=== PATIENT | female | born 2000 | race Caucasian/White ===

== ENCOUNTER 2023-10-08 13:39 | Outpatient (CLI) | payer OTHER | END 2023-10-08 15:54 | disposition home or self-care (01) | LOC: NST 13:39 | PROVIDERS: ATTEND Obstetrics & Gynecology Gynecology | DX: Z34.83 Encounter for supervision of other normal pregnancy, third trimester (principal) ==

== ENCOUNTER 2023-10-28 07:36 | Outpatient (CLI) | payer OTHER | END 2023-10-28 08:20 | disposition home or self-care (01) | LOC: NST 07:36 | PROVIDERS: ATTEND Obstetrics & Gynecology Gynecology | DX: Z34.83 Encounter for supervision of other normal pregnancy, third trimester (principal) ==

== ENCOUNTER 2023-11-25 16:12 | Outpatient (CLI) | payer OTHER | END 2023-11-25 16:35 | disposition home or self-care (01) | LOC: NST 16:12 | PROVIDERS: ATTEND Obstetrics & Gynecology Gynecology | DX: Z34.83 Encounter for supervision of other normal pregnancy, third trimester (principal) ==

== ENCOUNTER 2023-11-29 12:35 | Inpatient (IN) | payer OTHER ==
[~2023-11-29] VITALS: Ht 167.6 cm; Wt 98.9 kg
[2023-11-29] MEDS ORDERED: BETAMETHASONE ACETATE,SOD PHOS 30 MG/5 ML ML ONE (12:56)
[2023-11-29] MEDS ORDERED: RINGERS SOLUTION,LACTATED 1,000 ML IV SCH (13:30)
[2023-11-29] MEDS ORDERED: BETAMETHASONE ACETATE,SOD PHOS 30 MG/5 ML ML IM ONE (13:30)
[2023-11-29] MEDS ORDERED: METHIMAZOLE 5 MG TABLET PO SCH (13:30)
[2023-11-29] MEDS ORDERED: LABETALOL HCL 300 MG TABLET PO SCH (13:30)
[2023-11-29 13:35] LABS: HEMATOCRIT 36.2 % (36.0-45.00); MEAN CELL VOLUME 88.6 fL (80.00-100.00); MEAN CORPUSCULAR HEMOGLOBIN 29.4 pg (27.00-32.0); MEAN CORPUSCULAR HGB CONC 33.2 g/dl (32.0-36.0); RED BLOOD COUNT 4.08 M/uL (4.00-6.00); RED CELL DISTRIBUTION WIDTH 13.1 % (11.5-14.5)
[2023-11-29 13:40] LABS: PLATELET COUNT 68 K/uL (150-450)
[2023-11-29 13:44] LABS: PH,URINE 6.5 (5.0-8.0); URINE APPEARANCE Clear; URINE BILIRRUBIN Negative (NEGATIVE); URINE BLOOD Negative; URINE COLOR Yellow; URINE LEUKOCYTE Negative; URINE NITRATE Negative; URINE PROTEIN Negative (NEGATIVE); URINE UROBILINOGEN 0.2 E.U./dl
[2023-11-29] MEDS ORDERED: PRENATAL TABLE1 EAC1 PO (13:44)
[2023-11-29] MEDS ORDERED: TRANDATE300 MG PO (13:44)
[2023-11-29] MEDS ORDERED: TAPAZOLE5 MG PO (13:44)
[2023-11-29 13:45] LABS: URINE BACTERIA 1902.4 uL (0.0-1933); URINE EPITHELIAL CELLS 11.2 uL (0.0-38.8); URINE RBC 12.2 uL (0.0-20.8); URINE WBC 13.1 uL (0.0-23.2)
[2023-11-29 14:10] LABS: URINE GLUCOSE 100 MG/DL (NEGATIVE)
[2023-11-29 14:17] LABS: ALBUMIN 2.9 gm/dL (3.4-5.0); BILIRUBIN TOTAL 0.27 mg/dL (0.3-1.2); CALCIUM 9.1 mg/dL (8.5-10.1); CREATININE SERUM 0.68 mg/dL (0.55-1.02); GFR 105.42; POTASSIUM 4.26 mEq/L (3.5-5.1); TOTAL PROTEIN 6.9 gm/dL (6.4-8.2)
[2023-11-29 14:24] LABS: INR 0.95; PARTIAL THROMBOPLASTIN TIME 27.3 SECONDS (22.0-34.0)
[2023-11-29 18:34] LABS: T4 FREE 0.97 NG/ML (0.76-1.46); TSH 0.866 uIU/mL (0.358-3.74)
[2023-11-30 06:22] LABS: PLT IN CITRATE 62 K/uL (150-450)
[2023-11-30 06:59] LABS: HEMATOCRIT 35.6 % (36.0-45.00); HEMOGLOBIN 11.8 g/dL (12.0-15.00); MEAN CELL VOLUME 89.2 fL (80.00-100.00); MEAN CORPUSCULAR HEMOGLOBIN 29.6 pg (27.00-32.0); MEAN CORPUSCULAR HGB CONC 33.2 g/dl (32.0-36.0); RED BLOOD COUNT 3.99 M/uL (4.00-6.00); RED CELL DISTRIBUTION WIDTH 13.4 % (11.5-14.5)
[2023-11-30] MEDS ORDERED: BETAMETHASONE ACETATE,SOD PHOS 30 MG/5 ML ML IM ONE (13:00)
[2023-11-30] MEDS ORDERED: MISOPROSTOL 25 MCG TABLET ONE (17:24)
[2023-11-30] MEDS ORDERED: MISOPROSTOL 25 MCG TABLET VAG SCH (17:45)
[2023-11-30] MEDS ORDERED: AMPICILLIN SODIUM 2,000 MG VIAL IV ONE (17:45)
[2023-11-30] MEDS ORDERED: MORPHINE SULFATE 4 MG/ML CARTRIDGE IV SCH (21:00)
[2023-11-30] MEDS ORDERED: AMPICILLIN SODIUM 1,000 MG VIAL IV SCH (21:00)
[2023-12-01] MEDS ORDERED: OXYTOCIN 20 UNITS/500ML RL PIGGYBAG IV ONE (08:25)
[2023-12-01] MEDS ORDERED: OXYTOCIN 500 ML IV ONE (08:30)
[2023-12-01] MEDS ORDERED: OXYTOCIN 10 UNITS/ML VIAL ONE (20:08)
[2023-12-01] MEDS ORDERED: ERYTHROMYCIN BASE 3.5 GM OINT...G. OP ONE (20:09)
[2023-12-01] MEDS ORDERED: KETOROLAC TROMETHAMINE 30 MG VIAL IV SCH (20:10)
[2023-12-01] MEDS ORDERED: OXYTOCIN 1,000 ML IV ONE (20:15)
[2023-12-01] MEDS ORDERED: CITRIC ACID/SODIUM CITRATE 30 ML BLIST.PACK PO SCH (20:15)
[2023-12-01] MEDS ORDERED: MORPHINE SULFATE 4 MG/ML CARTRIDGE IV PRN (20:15)
[2023-12-01] MEDS ORDERED: CEFAZOLIN SODIUM 1,000 MG VIAL IV SCH (20:15)
[2023-12-01] MEDS ORDERED: RINGERS SOLUTION,LACTATED 1,000 ML IV SCH (20:15)
[2023-12-01] MEDS ORDERED: OXYTOCIN 10 UNITS/ML VIAL IV ONE (22:45)
[2023-12-01] MEDS ORDERED: ERYTHROMYCIN BASE 1 GM TUBE OP ONE (22:45)
[2023-12-02] MEDS ORDERED: AMPICILLIN SODIUM 1,000 MG VIAL ONE (00:22)
[2023-12-02] MEDS ORDERED: GABAPENTIN 300 MG CAPSULE PO SCH (01:00)
[2023-12-02] MEDS ORDERED: SIMETHICONE 125 MG CAPSULE PO SCH (01:00)
[2023-12-02] MEDS ORDERED: ACETAMINOPHEN 500 MG GEL..CAP PO SCH (06:00)
[2023-12-02 06:58] LABS: HEMATOCRIT 33.7 % (36.0-45.00); HEMOGLOBIN 11.3 g/dL (12.0-15.00); MEAN CELL VOLUME 87.4 fL (80.00-100.00); MEAN CORPUSCULAR HEMOGLOBIN 29.4 pg (27.00-32.0); MEAN CORPUSCULAR HGB CONC 33.6 g/dl (32.0-36.0); RED BLOOD COUNT 3.86 M/uL (4.00-6.00); RED CELL DISTRIBUTION WIDTH 13.2 % (11.5-14.5)
[2023-12-02 07:06] LABS: PLATELET COUNT 82 K/uL (150-450)
[2023-12-02] MEDS ORDERED: OxyCODONE HCL 5 MG TABLET (ROXICODONE) PO PRN (08:00)
[2023-12-02] MEDS ORDERED: KETOROLAC TROMETHAMINE 10 MG TABLET PO SCH (08:00)
[2023-12-02] MEDS ORDERED: SENNOSIDES 1 TAB TABLET PO SCH (09:00)
[2023-12-02] MEDS ORDERED: OxyCODONE HCL/APAP UD (PERCOCET) PO SCH (09:00)
[2023-12-03] MEDS ORDERED: TAPAZOLE5 MG PO (07:30)
[2023-12-03] MEDS ORDERED: OXYC1TAB9 PO (07:30)
[2023-12-03] MEDS ORDERED: KETO10TA2 PO (07:30)
[2023-12-03] MEDS ORDERED: TRANDATE300 MG PO (07:30)
[2023-12-03 16:56] LABS: PLATELET COUNT 65 K/uL (150-450)
[2023-12-03 16:57] LABS: PLATELET ESTIMATE NORMAL (NORMAL)
== END 2023-12-04 12:00 | disposition home or self-care (01) | DRG 787 ==
LOC: LDR 12:35 → OB/GYN 12:35 → LDR 11-30 19:17 → O/R 12-01 11:03 → LDR 12-01 11:04 → O/R 12-01 21:11 → OB/GYN 12-01 21:56
PROVIDERS: Internal Medicine Hematology & Oncology; Obstetrics & Gynecology; Obstetrics & Gynecology Maternal & Fetal Medicine; ADMIT Obstetrics & Gynecology Gynecology; ATTEND Obstetrics & Gynecology Gynecology
PROC: 4A1HXCZ Monitoring of Products of Conception, Cardiac Rate, External Approach (ICD-10-PCS; 2023-11-29)
PROC: 3E0P7VZ Introduction of Hormone into Female Reproductive, Via Natural or Artificial Opening (ICD-10-PCS; 2023-11-30)
PROC: 3E033VJ Introduction of Other Hormone into Peripheral Vein, Percutaneous Approach (ICD-10-PCS; 2023-12-01)
PROC: 10D00Z1 Extraction of Products of Conception, Low, Open Approach (ICD-10-PCS; principal; 2023-12-01 20:10)
DX: O61.0 Failed medical induction of labor (principal); O10.02 Pre-existing essential hypertension complicating childbirth; O99.284 Endocrine, nutritional and metabolic diseases complicating childbirth; R89.8 Other abnormal findings in specimens from other organs, systems and tissues; E05.90 Thyrotoxicosis, unspecified without thyrotoxic crisis or storm; Z3A.37 37 weeks gestation of pregnancy; Z37.0 Single live birth; Z20.822 Contact with and (suspected) exposure to COVID-19

== ENCOUNTER 2024-07-24 22:38 | Emergency (ER) | payer OTHER ==
[~2024-07-24] VITALS: Ht 172.7 cm; Wt 93.4 kg
[~2024-07-24 22:38] MED LIST: KETO10TA2 PO; OXYC1TAB9 PO; PRENATAL TABLE1 EAC1 PO; TAPAZOLE5 MG PO; TRANDATE300 MG PO
[2024-07-24] MEDS ORDERED: KETOROLAC TROMETHAMINE 15 MG VIAL IM STA (23:26)
== END 2024-07-25 00:12 | disposition home or self-care (01) ==
LOC: ER 22:40
DX: S50.02XA Contusion of left elbow, initial encounter (principal); X58.XXXA Exposure to other specified factors, initial encounter; Y93.89 Activity, other specified; Y92.89 Other specified places as the place of occurrence of the external cause; Y99.9 Unspecified external cause status

== ENCOUNTER 2024-08-28 21:01 | Emergency (ER) | payer OTHER ==
[~2024-08-28] VITALS: Ht 167.6 cm; Wt 84.4 kg
[2024-08-28] MEDS ORDERED: DEXAMETHASONE SODIUM PHOSPHATE 4 MG/ML VIAL IM ONE (23:30)
[2024-08-28] MEDS ORDERED: KETOROLAC TROMETHAMINE 60 MG VIAL IM ONE (23:30)
[2024-08-28] MEDS ORDERED: IBU600 MG PO (23:46)
== END 2024-08-29 01:12 | disposition home or self-care (01) ==
LOC: ER 21:04
DX: S93.491A Sprain of other ligament of right ankle, initial encounter (principal); X58.XXXA Exposure to other specified factors, initial encounter; Y93.89 Activity, other specified; Y92.89 Other specified places as the place of occurrence of the external cause; Y99.8 Other external cause status; I10 Essential (primary) hypertension; E03.8 Other specified hypothyroidism

== ENCOUNTER 2024-12-25 20:50 | Emergency (ER) | payer OTHER ==
[~2024-12-25] VITALS: Ht 167.6 cm; Wt 81.6 kg
[~2024-12-25 20:50] MED LIST changes: +IBU600 MG PO
[2024-12-25 21:24] VITALS: BP 153/99; O2SAT 100
[2024-12-25] MEDS ORDERED: KETOROLAC TROMETHAMINE 60 MG VIAL IM ONE ×2 (21:45→21:57)
[2024-12-25] MEDS ORDERED: DICLOFENAC SODI75 MG PO (23:06)
== END 2024-12-25 23:14 | disposition home or self-care (01) ==
LOC: ER 20:51
DX: M25.561 Pain in right knee (principal)